=== PATIENT | female | born 1965 | race Caucasian/White ===

== ENCOUNTER 2018-04-14 08:21 | Inpatient (IN) | payer BC, OTHER ==
[~2018-04-14] VITALS: Ht 152.4 cm; Wt 45.4 kg
[2018-04-14 14:31] LABS: *URINE HCG, QUAL NEGATIVE (NEGATIVE)
[2018-04-14 14:46] LABS: *AMPHETAMINE, URINE NEGATIVE (NEGATIVE); *BARBITURATE, URINE NEGATIVE (NEGATIVE); *CANNABINOID, URINE NEGATIVE (NEGATIVE); *COCCAINE, URINE NEGATIVE (NEGATIVE); *OPIATE, URINE NEGATIVE (NEGATIVE); *PHENCYCLIDINE SCREEN,URINE NEGATIVE (NEGATIVE)
[2018-04-14 15:00] VITALS: BP 124/78
[2018-04-14] MEDS ORDERED: ONDANSETRON 4 MG/2 ML VIAL IM PRN (15:15)
[2018-04-14] MEDS ORDERED: CLONIDINE HCL 0.1 MG TABLET PO PRN (15:15)
[2018-04-14] MEDS ORDERED: MIRALAX 17 GM POWD.PACK PO PRN (15:15)
[2018-04-14] MEDS ORDERED: diphenhydrAMINE 50 MG CAPSULE PO PRN (15:15)
[2018-04-14] MEDS ORDERED: IBUPROFEN 400 MG TABLET PO PRN (15:15)
[2018-04-14] MEDS ORDERED: LORAZEPAM 2 MG/1 ML VIAL IM PRN (15:15)
[2018-04-14] MEDS ORDERED: ONDANSETRON ODT 4 MG TAB.RAPDIS SL PRN (15:15)
[2018-04-14] MEDS ORDERED: LOPERAMIDE HCL 2 MG CAPSULE PO PRN ×2 (15:15)
[2018-04-14] MEDS ORDERED: ACETAMINOPHEN 325 MG TABLET PO PRN (15:15)
[2018-04-14] MEDS ORDERED: MAG HYDROX/AL HYDROX/SIMETH 30 ML LIQUID UDC PO PRN (15:15)
[2018-04-14] MEDS ORDERED: FOLI1TAB16 PO (15:40)
[2018-04-14] MEDS ORDERED: PRED5DRO16 EACHEYE (15:40)
[2018-04-14] MEDS ORDERED: ESTR8.1S TD (15:40)
[2018-04-14] MEDS ORDERED: PROG100C15 PO (15:40)
[2018-04-14] MEDS ORDERED: TRAZODONE 50 MG TABLET PO PRN (18:45)
[2018-04-14 20:00] VITALS: BP 133/83
[2018-04-14] MEDS: ESTRADIOL TOP SCH (21:28)
[2018-04-14] MEDS: PROGESTERONE 100 MG PO SCH (21:28)
[2018-04-15] VITALS: BP 119/68
[2018-04-15 04:00] VITALS: BP 116/70
[2018-04-15 08:00] VITALS: BP 138/89
[2018-04-15] MEDS: FOLIC ACID 1 MG TABLET PO SCH (08:27)
[2018-04-15] MEDS ORDERED: FOLIC ACID 1 MG PO SCH (09:00)
[2018-04-15] MEDS ORDERED: TUBERCULIN,PURIF.PROT.DERIV. 5 TU/0.1 ML TEST ID ONE (09:00)
[2018-04-15 12:00] VITALS: BP_SYST 123; BP_SYST 126; BP_DIAS 85; BP_DIAS 89
[2018-04-15 16:00] VITALS: BP 120/87
[2018-04-15 20:00] VITALS: BP 124/87
[2018-04-15] MEDS: ESTRADIOL TOP SCH (20:04)
[2018-04-15] MEDS: PROGESTERONE 100 MG PO SCH (20:04)
[2018-04-16 04:00] VITALS: BP 125/75
[2018-04-16 08:00] VITALS: BP 125/84
[2018-04-16] MEDS: FOLIC ACID 1 MG TABLET PO SCH (08:15)
== END 2018-04-16 09:32 | disposition other institution (70) | DRG 897 ==
LOC: SRC 14:01
PROVIDERS: ADMIT Internal Medicine; ATTEND Internal Medicine
PROC: HZ2ZZZZ Detoxification Services for Substance Abuse Treatment (ICD-10-PCS; principal; 2018-04-14)
DX: F10.10 Alcohol abuse, uncomplicated (principal); K50.90 Crohn's disease, unspecified, without complications; F17.210 Nicotine dependence, cigarettes, uncomplicated; Z82.49 Family history of ischemic heart disease and other diseases of the circulatory system; Z81.1 Family history of alcohol abuse and dependence; Y90.0 Blood alcohol level of less than 20 mg/100 ml; Z78.0 Asymptomatic menopausal state
CPT/HCPCS: 70030-TC; 80307; 84703; Q0163